=== PATIENT | female | born 1965 | race Caucasian/White ===

== ENCOUNTER → 2018-09-25 08:42 | Outpatient (CLI) | payer MEDICAID, SELFPAY ==
--- NOTE | 2018-09-25 08:45 | US_ITS ---
STUDY: THYROID ULTRASOUND REASON FOR EXAM: Female, 53 years old. History of thyroid cancer and prior resection of the right lobe of the thyroid. TECHNIQUE: Ultrasound evaluation of the thyroid was performed with real-time and static horan-scale imaging. COMPARISON: Comparison is made with prior study dated July 01, 2016. FINDINGS: RIGHT LOBE: The right lobe of the thyroid is surgically absent. LEFT LOBE: The left lobe of the thyroid gland measures 3.9 cm x 2.1 cm x 1.7 cm. There is a homogeneous echotexture. There are 4 subcentimeter hypoechoic solid nodules scattered in the upper mid and lower poles of the left lobe. The largest measures 4 mm x 3 mm x 2 mm. These are essentially unchanged. ISTHMUS: The isthmus measures 7 mm. Lateral to the left lobe of the thyroid gland, there are 3 sonographically benign-appearing lymph nodes. The largest measures 1.3 cm x 0.7 cm x 0.5 cm. US/Thyroid IMPRESSION: Stable ultrasound of the left lobe of the thyroid with 4 subcentimeter nodules. There are 3 sonographically benign-appearing left cervical lymph nodes. Electronically Signed: Braxton Ivy MD at 13:04 EST Tel [phone], Service support ,
== END ==
PROVIDERS: Family Provider Internal Medicine; PCP Internal Medicine; Referring Provider Otolaryngology; Visit Provider Otolaryngology
DX: D44.0 Neoplasm of uncertain behavior of thyroid gland (principal)
CPT/HCPCS: 76536